=== PATIENT | female | born 1995 | race Caucasian/White ===

== ENCOUNTER 2017-07-04 11:49 | Emergency (ER) | payer OTHER ==
[2017-07-04 12:00] VITALS: BP 146/80; PULSE 85; TEMP 98.4; BMI 29.2
--- NOTE | 2017-07-04 12:24 | PDOC ---
History of Present Illness - General History Source: Patient Exam Limitations: No Limitations - History of Present Illness Initial Comments: 07/04/17 14:03 The patient is a 21 year old female, currently , with no significant PMH who presents to the emergency department after multiple episodes of vomit for the past two days and abdominal pain that began last night. The patient describes the vomit as yellow colored but states it is now clear. The patient describes the abdominal pain as intermittent and stabbing. Last menstrual period was on 05/21. The patient denies any recent bleeding, discharge, or discomfort when urinating. The patient will have her first [facility] appointment on 07/17. The patient denies chest pain, shortness of breath, headache and dizziness. Denies fever, chills, diarrhea and constipation. Denies dysuria, frequency, urgency and hematuria. Allergies: NKA Past surgical history: None reported. Social history: No reported alcohol, drug, or cigarette use. <Marivel Jimenez - Last Filed: 07/04/17 14:38> <Ada New - Last Filed: 07/04/17 16:35> - General Chief Complaint: Vomiting/Diarrhea Stated Complaint: NAUSEA (6 WKS ) Time Seen by Provider: 07/04/17 12:24 Past History <Marivel Jimenez - Last Filed: 07/04/17 14:38> - Past Medical History Anemia: No Asthma: No Thyroid Disease: No - Suicide/Smoking/Psychosocial Hx Smoking Status: No Smoking History: Former smoker Have you smoked in the past 12 months: Yes Number of Cigarettes Smoked Daily: 4 If you are a former smoker, when did you quit?: 4 DAYS AGO Information on smoking cessation initiated: No 'Breaking Loose' booklet given: 05/10/15 Hx Alcohol Use: No Drug/Substance Use Hx: No Substance Use Type: None Hx Substance Use Treatment: No <Ada New - Last Filed: 07/04/17 16:35> - Past Medical History Allergies/Adverse Reactions: Allergies Allergy/AdvReac Type Severity Reaction Status Date / Time No Known Allergies Allergy Verified 07/04/17 11:57 Home Medications: Ambulatory Orders Acetaminophen [Tylenol] 325 mg PO Q4H PRN 07/04/17 Review of Systems - Review of Systems Able to Perform ROS?: Yes Comments:: 07/04/17 14:05 GENERAL/CONSTITUTIONAL: No fever or chills. No weakness. HEAD, EYES, EARS, NOSE AND THROAT: No change in vision. No ear pain or discharge. No sore throat. CARDIOVASCULAR: No chest pain or shortness of breath. RESPIRATORY: No cough, wheezing, or hemoptysis. GASTROINTESTINAL: (+) Abdominal pain. (+) Vomiting. No diarrhea or constipation. GENITOURINARY: No dysuria, frequency, or change in urination. MUSCULOSKELETAL: No joint or muscle swelling or pain. No neck or back pain. SKIN: No rash NEUROLOGIC: No headache, vertigo, loss of consciousness, or change in strength/ sensation. ENDOCRINE: No increased thirst. No abnormal weight change. HEMATOLOGIC/LYMPHATIC: No anemia, easy bleeding, or history of blood clots. ALLERGIC/IMMUNOLOGIC: No hives or skin allergy. <Marivel Jimenez - Last Filed: 07/04/17 14:38> *Physical Exam - Vital Signs Last Vital Signs Temp Pulse Resp BP Pulse Ox 98.4 F 85 17 146/80 99 07/04/17 11:57 07/04/17 11:57 07/04/17 11:57 07/04/17 11:57 07/04/17 11:57 - Physical Exam Comments: 07/04/17 14:06 GENERAL: Awake, alert, and fully oriented, in no acute distress HEAD: No signs of trauma EYES: PERRLA, EOMI, sclera anicteric, conjunctiva clear ENT: Auricles normal inspection, hearing grossly normal, nares patent, oropharynx clear without exudates. Moist mucosa NECK: Normal ROM, supple, no lymphadenopathy, JVD, or masses LUNGS: Breath sounds equal, clear to auscultation bilaterally. No wheezes, and no crackles HEART: Regular rate and rhythm, normal S1 and S2, no murmurs, rubs or gallops ABDOMEN: Soft, nontender, normoactive bowel sounds. No guarding, no rebound. No masses PELVIC EXAM: (+) Moderate white discharge. No active bleeding in the os. Os is closed. No adnexal tenderness. No cervical motion tenderness. EXTREMITIES: Normal range of motion, no edema. No clubbing or cyanosis. No cords, erythema, or tenderness NEUROLOGICAL: Cranial nerves II through XII grossly intact. Normal speech, normal gait SKIN: Warm, Dry, normal turgor, no rashes or lesions noted. <Marivel Jimenez - Last Filed: 07/04/17 14:38> - Vital Signs Last Vital Signs Temp Pulse Resp BP Pulse Ox 98.4 F 85 17 146/80 99 07/04/17 11:57 07/04/17 11:57 07/04/17 11:57 07/04/17 11:57 07/04/17 11:57 <Ada New - Last Filed: 07/04/17 16:35> Moderate Sedation - Procedure Monitoring Vital Signs: Vital Signs Temp Pulse Resp BP Pulse Ox 98.4 F 85 17 146/80 99 07/04/17 11:57 07/04/17 11:57 07/04/17 11:57 07/04/17 11:57 07/04/17 11:57 <Marivel Jimenez - Last Filed: 07/04/17 14:38> - Procedure Monitoring Vital Signs: Vital Signs Temp Pulse Resp BP Pulse Ox 98.4 F 85 17 146/80 99 07/04/17 11:57 07/04/17 11:57 07/04/17 11:57 07/04/17 11:57 07/04/17 11:57 <Ada New - Last Filed: 07/04/17 16:35> ED Treatment Course - LABORATORY CBC & Chemistry Diagram: 07/04/17 13:45 07/04/17 13:45 - Medications Given in the ED: ED Medications Discontinued Medications Generic Name Dose Route Start Last Admin Trade Name Shelton PRN Reason Stop Dose Admin Metoclopramide HCl 10 mg 07/04/17 13:23 07/04/17 13:45 Reglan Injection - IVPUSH 07/04/17 13:24 10 mg ONCE ONE Administration Sodium Chloride 1,000 ml 07/04/17 13:23 07/04/17 13:45 Normal Saline - IV 07/04/17 13:24 1,000 ml ONCE ONE Administration <Marivel Jimenez - Last Filed: 07/04/17 14:38> - LABORATORY CBC & Chemistry Diagram: 07/04/17 13:45 07/04/17 13:45 <Ada New - Last Filed: 07/04/17 16:35> Medical Decision Making - Medical Decision Making 07/04/17 16:33 pt presents to the ED complaining of nausea and vomiting and mild lower abdominal pain. 6 weeks by dates. Ectopic unlikely--+ IUP without adnexal massess on transvaginal US. Now tolerating PO after reglan. Will discharge home with follow up with STAFF [facility]UCLE[facility] MEDICINE TECHNOLOGIST. <Ada New - Last Filed: 07/04/17 16:35> *DC/Admit/Observation/Transfer - Attestations Scribe Attestion: 07/04/17 14:07 Documentation prepared by Marivel Jimenez, acting as medical center representative for Ada New MD. <Marivel Jimenez - Last Filed: 07/04/17 14:38> - Discharge Dispostion Decision to Admit order: No <Ada New - Last Filed: 07/04/17 16:35> Diagnosis at time of Disposition: Hyperemesis - Discharge Dispostion Disposition: HOME Condition at time of disposition: Good - Referrals Referrals: Eilsa Gan MD [Staff Physician] - - Patient Instructions Additional Instructions: return to the ED for severe abdominal pain, pain with fever, severe nausea and vomiting, vaginal bleeding, passing out other new or changing symptoms. Make sure that you see STAFF NUCLEAR MEDICINE TECHNOLOGIST within one week.
[2017-07-04] MEDS ORDERED: SODIUM CHLORIDE 0.9% 500 ML INFUS.BAG IV ONE (13:23)
[2017-07-04] MEDS ORDERED: METOCLOPRAMIDE HCL INJECTION 10 MG/2 ML VIAL IVPUSH ONE (13:23)
[2017-07-04] MEDS ORDERED: METOCLOPRAMIDE HCL INJECTION 10 MG/2 ML VIAL ONE (13:33)
[2017-07-04 14:08] LABS: BASO % 0.9 % (0-2.0); EOS % 0.2 % (0-4.5); HEMATOCRIT 42.8 % (32.4-45.2); HEMOGLOBIN 14.4 GM/dL (10.7-15.3); LYMPH % 17.1 % (8-40); MCH 30.2 pg (25.7-33.7); MCHC 33.7 g/dl (32.0-36.0); MEAN CELL VOLUME 89.8 fl (80-96); MEAN PLT VOLUME 7.8 fl (7.5-11.1); MONO % 5.8 % (3.8-10.2); PLATELET COUNT 306 K/MM3 (134-434); RBC 4.76 M/mm3 (3.60-5.2); RDW 12.9 % (11.6-15.6); WHITE BLOOD COUNT 12.7 K/mm3 (4.0-10.0)
[2017-07-04 14:34] LABS: CHLORIDE 104 mmol/L (98-107); POTASSIUM 3.5 mmol/L (3.5-5.1); SODIUM 138 mmol/L (136-145)
[2017-07-04 14:45] LABS: URINE APPEARANCE SLCLOUDY; URINE BILIRUBIN NEGATIVE (<2.0 mg/dL); URINE COLOR AMBER; URINE GLUCOSE (UA) NEGATIVE (NEGATIVE); URINE KETONE 2+ (NEGATIVE); URINE LEUK ESTERASE TRACE (NEGATIVE); URINE NITRITE POSITIVE (NEGATIVE); URINE PROTEIN 1+ (NEGATIVE); URINE UROBILINOGEN 4.0 E.U/dl mg/dL (0.2-1.0)
[2017-07-04 14:55] LABS: EPI CELLS RARE /HPF (FEW); URINE BACTERIA MODERATE /hpf (NONE SEEN); URINE MUCUS MANY
[2017-07-04 15:10] LABS: ALBUMIN 4.2 g/dl (3.4-5.0); ALK PHOS 69 U/L (45-117); ANION GAP 9 (8-16); BILIRUBIN,TOTAL 0.8 mg/dL (0.2-1.0); BLOOD UREA NITROGEN 11 mg/dL (7-18); CALCIUM 8.9 mg/dL (8.5-10.1); CO2 25 mmol/L (21-32); CREATININE 0.6 mg/dL (0.55-1.02); GLUCOSE,RANDOM 85 mg/dL (74-106); SGOT/AST 13 U/L (15-37); SGPT/ALT 17 U/L (12-78); TOT PROT 7.7 g/dl (6.4-8.2)
== END 2017-07-04 17:21 | disposition home or self-care (01) ==
LOC: JER 11:49
PROC: 3E033GC Introduction of Other Therapeutic Substance into Peripheral Vein, Percutaneous Approach (ICD-10-PCS; principal; 2017-07-04)
DX: O26.891 Other specified pregnancy related conditions, first trimester (principal); O21.0 Mild hyperemesis gravidarum; Z3A.01 Less than 8 weeks gestation of pregnancy
CPT/HCPCS: 36415; 76817-TC; 80053; 81003; 81015; 84702; 85025; 86850; 86900; 86901; 96374; 99281-25

== ENCOUNTER 2020-09-10 12:34 | Emergency (ER) | payer OTHER ==
[2020-09-10 12:47] VITALS: BMI 30.9
[2020-09-10] MEDS ORDERED: ONDANSETRON 4 MG/2 ML VIAL IVPB ONE (12:57)
[2020-09-10] MEDS ORDERED: SODIUM CHLORIDE 1,000 ML IV STA (12:57)
[2020-09-10] MEDS ORDERED: ONDANSETRON 4 MG/2 ML VIAL ONE (13:29)
[2020-09-10] MEDS ORDERED: SODIUM CHLORIDE 0.9% 500 ML INFUS.BAG IV ONE ×3 (14:26→19:45)
[2020-09-10 14:34] LABS: BASO % 0.5 % (0-2.0); HEMATOCRIT 43.5 % (32.4-45.2); LYMPH % 19.7 % (8-40); MCH 30.3 pg (25.7-33.7); MCHC 34.6 g/dl (32.0-36.0); MEAN CELL VOLUME 87.5 fl (80-96); MEAN PLT VOLUME 8.2 fl (7.5-11.1); MONO % 7.3 % (3.8-10.2); NEUT % 72.5 % (42.8-82.8); PLATELET COUNT 195 10^3/uL (134-434); RBC 4.97 M/mm3 (3.60-5.2); RDW 13.1 % (11.6-15.6); WHITE BLOOD COUNT 3.2 K/mm3 (4.0-10.0)
[2020-09-10 14:54] LABS: ALBUMIN 4.2 g/dl (3.4-5.0); CALCIUM 8.5 mg/dL (8.5-10.1)
[2020-09-10 14:55] LABS: BLOOD UREA NITROGEN 9.6 mg/dL (7-18)
[2020-09-10 14:57] LABS: CREATININE 0.7 mg/dL (0.55-1.3)
[2020-09-10 14:59] LABS: BILIRUBIN,TOTAL 0.5 mg/dL (0.2-1); TOT PROT 7.8 g/dl (6.4-8.2)
[2020-09-10 15:01] LABS: EPI CELLS >36 /uL (0-25.1); HYALINE CASTS 5 /uL (0-3.1); URINE APPEARANCE CLOUDY; URINE BACTERIA 1380 /uL (0-1359); URINE BILIRUBIN NEGATIVE (NEGATIVE); URINE COLOR DK YELLOW; URINE GLUCOSE (UA) NEGATIVE (NEGATIVE); URINE KETONE 4+ (NEGATIVE); URINE LEUK ESTERASE NEGATIVE (NEGATIVE); URINE NITRITE NEGATIVE (NEGATIVE); URINE PROTEIN 2+ (NEGATIVE); URINE RBC 15 /uL (0-23.9); URINE WBC 22 /uL (0-25.8)
[2020-09-10] MEDS ORDERED: ONDANSETRON *ODT* 4 MG TABLET SL ONE (16:35)
[2020-09-10] MEDS ORDERED: ONDANSETRON *ODT* 4 MG TABLET ONE (16:36)
[2020-09-10] MEDS ORDERED: ACETAMINOPHEN 1000 MG/100 ML VIAL (NON FORMULARY) IVPB ONE (17:53)
[2020-09-10] MEDS ORDERED: ACETAMINOPHEN INJECTION 100 ML IVPB ONE (17:54)
[2020-09-10 18:04] LABS: EPI CELLS 23 /uL (0-25.1); HYALINE CASTS 1 /uL (0-3.1); PH,URINE 5.5 (5.0-8.0); URINE APPEARANCE CLEAR; URINE BACTERIA 546 /uL (0-1359); URINE BILIRUBIN NEGATIVE (NEGATIVE); URINE COLOR YELLOW; URINE GLUCOSE (UA) NEGATIVE (NEGATIVE); URINE KETONE 3+ (NEGATIVE); URINE LEUK ESTERASE NEGATIVE (NEGATIVE); URINE NITRITE NEGATIVE (NEGATIVE); URINE PROTEIN TRACE (NEGATIVE); URINE RBC 361 /uL (0-23.9); URINE WBC 20 /uL (0-25.8)
[2020-09-10] MEDS ORDERED: METOCLOPRAMIDE HCL INJECTION 10 MG/2 ML VIAL IVPUSH ONE (19:49)
[2020-09-10] MEDS ORDERED: METOCLOPRAMIDE HCL INJECTION 10 MG/2 ML VIAL ONE (19:52)
[2020-09-10 21:38] VITALS: BP 122/81; PULSE 80; TEMP 98.9
== END 2020-09-10 21:10 | disposition home or self-care (01) ==
LOC: JER 12:34
PROC: 3E0333Z Introduction of Anti-inflammatory into Peripheral Vein, Percutaneous Approach (ICD-10-PCS; principal; 2020-09-10)
PROC: 3E033GC Introduction of Other Therapeutic Substance into Peripheral Vein, Percutaneous Approach (ICD-10-PCS; 2020-09-10)
PROC: 3E033GC Introduction of Other Therapeutic Substance into Peripheral Vein, Percutaneous Approach (ICD-10-PCS; 2020-09-10)
PROC: 3E0337Z Introduction of Electrolytic and Water Balance Substance into Peripheral Vein, Percutaneous Approach (ICD-10-PCS; 2020-09-10)
DX: K52.9 Noninfective gastroenteritis and colitis, unspecified (principal)
CPT/HCPCS: 36415; 71046-TC-FY; 80053; 81003; 83690; 84703; 85025; 87086; 99285-25; C9803; J0131; Q0162; U0003; U0005

== ENCOUNTER 2021-05-22 12:55 | Emergency (ER) | payer OTHER ==
[2021-05-22 13:15] VITALS: TEMP 97.4; BMI 31.5
[2021-05-22] MEDS ORDERED: SODIUM CHLORIDE 1,000 ML IV STA (15:02)
[2021-05-22] MEDS ORDERED: ACETAMINOPHEN 1000 MG/100 ML BAG IVPB ONE (15:02)
[2021-05-22] MEDS ORDERED: ACETAMINOPHEN INJECTION 100 ML IVPB ONE (15:43)
[2021-05-22 15:54] LABS: BASO % 0.5 % (0-2.0); EOS % 0.2 % (0-4.5); HEMATOCRIT 39.5 % (32.4-45.2); HEMOGLOBIN 13.7 GM/dL (10.7-15.3); LYMPH % 11.7 % (8-40); MCH 30.5 pg (25.7-33.7); MCHC 34.6 g/dl (32.0-36.0); MEAN PLT VOLUME 7.9 fl (7.5-11.1); MONO % 5.1 % (3.8-10.2); NEUT % 82.5 % (42.8-82.8); PLATELET COUNT 358 10^3/uL (134-434); RBC 4.49 M/mm3 (3.60-5.2); RDW 13.4 % (11.6-15.6); WHITE BLOOD COUNT 19.8 K/mm3 (4.0-10.0)
[2021-05-22 16:19] LABS: ALBUMIN 3.1 g/dl (3.4-5.0); BLOOD UREA NITROGEN 8.4 mg/dL (7-18); CALCIUM 9.1 mg/dL (8.5-10.1)
[2021-05-22 16:23] LABS: CREATININE 0.5 mg/dL (0.55-1.3)
[2021-05-22 16:25] LABS: BILIRUBIN,TOTAL 0.5 mg/dL (0.2-1); TOT PROT 7.3 g/dl (6.4-8.2)
[2021-05-22 18:19] LABS: ERYTHROCYTE SEDIMENTATION RATE 39 mm/hr (0-20)
[2021-05-22 18:33] VITALS: BP 129/70; PULSE 90
[2021-05-23 19:08] LABS: SARS-CoV-2 NAA Not Detected (Not Detected)
== END 2021-05-22 18:34 | disposition home or self-care (01) ==
LOC: JER 12:55
PROC: 3E033GC Introduction of Other Therapeutic Substance into Peripheral Vein, Percutaneous Approach (ICD-10-PCS; principal; 2021-05-22)
DX: O26.891 Other specified pregnancy related conditions, first trimester (principal); M25.512 Pain in left shoulder; M79.672 Pain in left foot; Z3A.12 12 weeks gestation of pregnancy
CPT/HCPCS: 36415; 73630-TC-LT; 80053; 82550; 84702; 85025; 85651; 86140; 86618; 87804; 93971-TC; 99284-25; C9803-CS; U0003; U0005

== ENCOUNTER 2022-02-11 10:49 | Emergency (ER) | payer OTHER ==
[2022-02-11 11:00] VITALS: BP 120/85; RESP 18; BMI 31.8
[2022-02-11] MEDS ORDERED: ACETAMINOPHEN 500 MG TABLET (FP) PO ONE (12:04)
[2022-02-11 12:18] VITALS: PULSE 92; TEMP 100.4
== END 2022-02-11 12:57 | disposition home or self-care (01) ==
LOC: JER 10:49
DX: J09.X2 Influenza due to identified novel influenza A virus with other respiratory manifestations (principal)
CPT/HCPCS: 0241U-QW; 99283-25

== ENCOUNTER 2022-10-29 10:04 | Emergency (ER) | payer OTHER ==
[2022-10-29 10:16] VITALS: RESP 18; BMI 31.8
[2022-10-29] MEDS ORDERED: ONDANSETRON 4 MG/2 ML VIAL IVPUSH ONE (11:10)
[2022-10-29] MEDS ORDERED: FAMOTIDINE 20 MG/50 ML IVPB 20 MG/50 ML MG IVPB ONE ×2 (11:10→11:32)
[2022-10-29] MEDS ORDERED: SODIUM CHLORIDE 0.9% 500 ML INFUS.BAG IV ONE (11:10)
[2022-10-29] MEDS ORDERED: ONDANSETRON 4 MG/2 ML VIAL ONE (11:32)
[2022-10-29 12:16] LABS: BASO % 0.4 % (0-2.0); HEMATOCRIT 44.6 % (32.4-45.2); HEMOGLOBIN 15.6 GM/dL (10.7-15.3); LYMPH % 12.6 % (8-40); MCHC 34.9 g/dl (32.0-36.0); MEAN CELL VOLUME 86.1 fl (80-96); MEAN PLT VOLUME 7.7 fl (7.5-11.1); PLATELET COUNT 245 10^3/uL (134-434); RBC 5.18 M/mm3 (3.60-5.2); RDW 13.4 % (11.6-15.6); WHITE BLOOD COUNT 6.7 K/mm3 (4.0-10.0)
[2022-10-29 12:18] LABS: EPI CELLS >36 /uL (0-25.1); HYALINE CASTS 1 /uL (0-3.1); URINE APPEARANCE CLOUDY; URINE BACTERIA 1910 /uL (0-1359); URINE BILIRUBIN 1+ (NEGATIVE); URINE COLOR DK YELLOW; URINE GLUCOSE (UA) NEGATIVE (NEGATIVE); URINE KETONE TRACE (NEGATIVE); URINE LEUK ESTERASE NEGATIVE (NEGATIVE); URINE NITRITE NEGATIVE (NEGATIVE); URINE PROTEIN 1+ (NEGATIVE); URINE WBC 38 /uL (0-25.8)
[2022-10-29 12:19] LABS: HCG,QUALITATIVE URINE Positive
[2022-10-29 12:24] LABS: THROAT:GRP A STREP NOT DETECTED (NOTDETECTED)
[2022-10-29 12:37] LABS: BLOOD UREA NITROGEN 11.9 mg/dL (7-18); POTASSIUM 3.2 mmol/L (3.5-5.1)
[2022-10-29 12:39] LABS: ALBUMIN 3.6 g/dl (3.4-5.0); CALCIUM 8.2 mg/dL (8.5-10.1)
[2022-10-29 12:42] LABS: CREATININE 0.7 mg/dL (0.55-1.3)
[2022-10-29 12:44] LABS: BILIRUBIN,TOTAL 0.6 mg/dL (0.2-1); TOT PROT 7.2 g/dl (6.4-8.2)
[2022-10-29] MEDS ORDERED: CEFTRIAXONE 1,000 MG in DEXTROSE 5%-WATER - 50 ML IVPB ONE (14:08)
[2022-10-29 15:11] VITALS: TEMP 100.1
[2022-10-29] MEDS ORDERED: CEFTRIAXONE 1 GM/50 ML BAG ONE (15:24)
[2022-10-29] MEDS ORDERED: ACETAMINOPHEN 325 MG TABLET (FP) PO ONE (15:29)
[2022-10-29 15:42] VITALS: BP 111/84; PULSE 95
== END 2022-10-29 15:40 | disposition home or self-care (01) ==
LOC: JER 10:04
PROC: 3E03329 Introduction of Other Anti-infective into Peripheral Vein, Percutaneous Approach (ICD-10-PCS; principal; 2022-10-29)
PROC: 3E033GC Introduction of Other Therapeutic Substance into Peripheral Vein, Percutaneous Approach (ICD-10-PCS; 2022-10-29)
PROC: 3E033GC Introduction of Other Therapeutic Substance into Peripheral Vein, Percutaneous Approach (ICD-10-PCS; 2022-10-29)
DX: R11.2 Nausea with vomiting, unspecified (principal); R19.7 Diarrhea, unspecified; M79.10 Myalgia, unspecified site; R68.83 Chills (without fever); R51.9 Headache, unspecified; R10.13 Epigastric pain; K52.9 Noninfective gastroenteritis and colitis, unspecified; R82.71 Bacteriuria; Z20.822 Contact with and (suspected) exposure to COVID-19
CPT/HCPCS: 0241U-QW; 36415; 80053; 81003; 83690; 84702; 84703; 85025; 87651; 99284-25